=== PATIENT | female | born 1990 | race African-American/Black ===

== ENCOUNTER 2021-06-14 19:30 | Emergency (ER) | payer MEDICAID, OTHER ==
[~2021-06-14] VITALS: Ht 162.6 cm; Wt 65.3 kg
[2021-06-14 19:50] VITALS: BP 130/94
--- NOTE | 2021-06-14 19:53 | NUR ---
to lobby a/w bed ambulatory
--- NOTE | 2021-06-14 20:55 | NUR ---
PER JUAN LUIS IN ADMITTING, PT LEFT WITHOUT BEING SEEN AT THIS TIME.
--- NOTE | 2021-06-14 20:55 | NUR ---
PATIENT LEFT WITHOUT BEING SEEN BY DR. NAJERA. NO FURTHER CARE PROVIDED FOR PATIENT.
== END 2021-06-14 20:55 | disposition left against medical advice (07) ==
LOC: MED 19:30
DX: N93.9 Abnormal uterine and vaginal bleeding, unspecified (principal); Z53.21 Procedure and treatment not carried out due to patient leaving prior to being seen by health care provider

== ENCOUNTER 2022-12-04 17:29 | Emergency (ER) | payer MEDICAID ==
[~2022-12-04] VITALS: Ht 162.6 cm; Wt 72.1 kg
[2022-12-04 17:33] VITALS: BP 159/105
--- NOTE | 2022-12-04 19:20 | NUR ---
PT W/C ASSISTED TO BED#2
--- NOTE | 2022-12-04 19:22 | NUR ---
Patient resting in bed, A/Ox4, chest rise and fall symmetrical, no s/s of distress, on monitor.
[2022-12-04] MEDS ORDERED: ACETAMINOPHEN EXTRA STRENGTH 500 MG TAB PO ONE (19:25)
[2022-12-04] MEDS ORDERED: IBUPROFEN 600 MG TAB PO ONE (19:25)
--- NOTE | 2022-12-04 19:26 | NUR ---
ER physician speaking to patient.
[2022-12-04] MEDS ORDERED: IBUP-2213 PO (19:30)
--- NOTE | 2022-12-04 19:38 | NUR ---
Crutches dispensed. Taught proper use, patient returned demo, patient ambulated successfully 50 yards while utilizing cutches. Patient has no questions for use of crutches.
[2022-12-04 19:40] VITALS: BP 138/81
--- NOTE | 2022-12-04 19:54 | NUR ---
Note ranjana in EDM - 12/04/22 at 1955 by [id number] Crutches dispensed. Taught proper use, patient returned demo, patient ambulated successfully 50 yards while utilizing cutches. Patient has no questions for use of crutches.
== END 2022-12-04 19:40 | disposition home or self-care (01) ==
LOC: MED 17:29
DX: S92.511A Displaced fracture of proximal phalanx of right lesser toe(s), initial encounter for closed fracture (principal); W22.8XXA Striking against or struck by other objects, initial encounter; Y92.89 Other specified places as the place of occurrence of the external cause; Y93.89 Activity, other specified; Y99.8 Other external cause status
CPT/HCPCS: 29515; 73660; 99283